=== PATIENT | male | born 1955 ===

== ENCOUNTER 2018-09-17 03:05 | Emergency (ER) | payer SELFPAY ==
[~2018-09-17] VITALS: Ht 165.1 cm; Wt 99.8 kg
[2018-09-17 03:19] VITALS: BP 150/101; Ht 165.1 cm; Wt 99.8 kg
== END 2018-09-17 03:35 | disposition home or self-care (01) ==
LOC: ED 03:05
DX: Z13.89 Encounter for screening for other disorder (principal); R47.81 Slurred speech; J45.909 Unspecified asthma, uncomplicated; I10 Essential (primary) hypertension; E11.9 Type 2 diabetes mellitus without complications; Z86.73 Personal history of transient ischemic attack (TIA), and cerebral infarction without residual deficits